=== PATIENT | female | born 1970 | race Two or more races ===

== ENCOUNTER 2019-08-29 08:54 | Outpatient (CLI) | payer OTHER | END 2019-08-29 15:00 | disposition home or self-care (01) | LOC: LAB SALUS 08:54 | DX: Z13.220 Encounter for screening for lipoid disorders (principal); Z11.59 Encounter for screening for other viral diseases; Z13.1 Encounter for screening for diabetes mellitus; Z11.4 Encounter for screening for human immunodeficiency virus [HIV]; Z72.51 High risk heterosexual behavior; Z11.3 Encounter for screening for infections with a predominantly sexual mode of transmission; Z12.11 Encounter for screening for malignant neoplasm of colon ==

== ENCOUNTER 2019-10-08 09:34 | Outpatient (CLI) | payer OTHER | END 2019-10-08 09:41 | disposition home or self-care (01) | LOC: LAB 09:34 | DX: J11.1 Influenza due to unidentified influenza virus with other respiratory manifestations (principal); R05 Cough ==